=== PATIENT | female | born 1995 | race Caucasian/White ===

== ENCOUNTER → 2019-06-09 | Outpatient (CLI) | payer BC ==
[~2019-06-09] MED LIST: ABAC300; IBUP800 PO; LABE100 PO; ONDA4ODT; Verotin-Gr Cap1 EACH PO
== END | disposition home or self-care (01) ==
LOC: LAB EV 14:45 → LAB SHORT 14:45
DX: R35.0 Frequency of micturition (principal)
CPT/HCPCS: 87086

== ENCOUNTER 2020-05-21 13:39 | Emergency (ER) | payer OTHER, BC ==
[~2020-05-21] VITALS: Ht 177.8 cm; Wt 74.8 kg
[2020-05-21 14:26] LABS: BASOPHILS ABSOLUTE AUTO 0.05 K/mm3 (0.00-0.23); BASOPHILS PERCENT AUTO 1 % (0-2); EOSINOPHILS ABSOLUTE AUTO 0.12 K/mm3 (0.00-0.68); EOSINOPHILS PERCENT AUTO 2 % (0-6); Hemoglobin 13.4 g/dL (11.5-16.0); IMMATURE GRAN ABSOLUTE AUTO 0.02 K/mm3 (0.00-0.10); IMMATURE GRAN PERCENT AUTO 0 % (0-1); LYMPHOCYTES ABSOLUTE AUTO 2.01 K/mm3 (0.84-5.20); LYMPHOCYTES PERCENT AUTO 24 % (21-46); MONOCYTES ABSOLUTE AUTO 0.59 K/mm3 (0.16-1.47); MONOCYTES PERCENT AUTO 7 % (4-13); Mean Corpuscular HGB 30.5 pg (26.0-34.0); Mean Corpuscular HGB Conc 33.5 g/dL (31.5-36.5); Mean Corpuscular Volume 91 fL (80-100); Mean Platelet Volume 9.7 fL (9.1-12.4); NEUTROPHILS ABSOLUTE AUTO 5.48 K/mm3 (1.96-9.15); NEUTROPHILS PERCENT AUTO 66 % (41-73); Platelet Count 274 K/mm3 (150-400); RDW Coefficient Variation 12.1 % (11.7-14.2); RDW Standard Deviation 40.9 fL (35.1-46.3); Red Blood Cell Count 4.39 M/mm3 (3.80-5.20); White Blood Cell Count 8.27 K/mm3 (4.00-11.30)
[2020-05-21 14:48] LABS: Source, Urine Clean Catch
[2020-05-21 14:49] LABS: Alanine Aminotransfer (ALT/SGP 30 U/L (12-78); Albumin, Blood 3.9 g/dL (3.4-5.0); Albumin/Globulin Ratio 1.1 (0.8-1.8); Alk Phos 44 U/L (50-136); Anion Gap 4 mmol/L (6-16); Aspartate Aminotrans (AST/SGOT 17 U/L (12-37); Beta HCG, Quantitative, Serum 170 mIU/mL (0-3); Bilirubin, Total 0.6 mg/dL (0.1-1.0); Blood Urea Nitrogen 9 mg/dL (8-24); Bun/Creatinine Ratio 12.7 (12.0-20.0); CO2, Blood 28 mmol/L (21-32); Calcium, Blood 8.6 mg/dL (8.5-10.1); Chloride, Blood 108 mmol/L (98-108); Creatinine, Blood 0.71 mg/dL (0.40-1.00); Globulin, Blood 3.5 g/dL (2.2-4.0); Glomerular Filtration Rate >60 (60-); Glucose, Blood 93 mg/dL (70-99); Potassium, Blood 3.7 mmol/L (3.5-5.5); Sodium, Blood 140 mmol/L (136-145); Total Protein, Blood 7.4 g/dL (6.4-8.2)
[2020-05-21] MEDS ORDERED: EUTHYROX25 MC1 PO (14:49)
[2020-05-21 15:02] LABS: Bilirubin, Urine Neg (Neg); Blood, Urine 5+ (Neg); Glucose Qualitative, Urine Neg (Neg); Ketones, Urine Neg (Neg); Leukocyte Esterase, Urine Neg (Neg); Nitrite, Urine Neg (Neg); Protein, Urine Neg (Neg); Urobilinogen, Urine NORM (Normal)
[2020-05-21 15:11] LABS: Appearance, Urine Clear (Clear); Color, Urine Yellow (P-Yellow)
[2020-05-21 15:18] LABS: White Blood Cells, Urine 0-2 /hpf (0-5)
[2020-05-21 15:19] LABS: Bacteria Mod /hpf; Squamous Epithelial Cells Few /hpf (Few)
== END 2020-05-21 16:30 | disposition home or self-care (01) ==
LOC: ER 13:39
PROVIDERS: Physician Assistant
DX: O03.9 Complete or unspecified spontaneous abortion without complication (principal); Z79.899 Other long term (current) drug therapy
CPT/HCPCS: 36415; 76801; 76817; 80053; 81001; 81025; 84702; 84703; 85025; 86900; 86901; 87086; 99284-25

== ENCOUNTER 2021-06-18 18:01 | Emergency (ER) | payer OTHER, BC ==
[~2021-06-18] VITALS: Ht 180.3 cm; Wt 74.8 kg
[~2021-06-18 18:01] MED LIST changes: +EUTHYROX25 MC1 PO
[2021-06-18 19:14] LABS: BASOPHILS ABSOLUTE AUTO 0.03 K/mm3 (0.00-0.23); BASOPHILS PERCENT AUTO 0 % (0-2); EOSINOPHILS PERCENT AUTO 0 % (0-6); Hemoglobin 13.4 g/dL (11.5-16.0); IMMATURE GRAN ABSOLUTE AUTO 0.03 K/mm3 (0.00-0.10); IMMATURE GRAN PERCENT AUTO 0 % (0-1); LYMPHOCYTES ABSOLUTE AUTO 2.48 K/mm3 (0.84-5.20); LYMPHOCYTES PERCENT AUTO 21 % (21-46); MONOCYTES PERCENT AUTO 8 % (4-13); Mean Corpuscular HGB 30.9 pg (26.0-34.0); Mean Corpuscular HGB Conc 33.5 g/dL (31.5-36.5); Mean Corpuscular Volume 92 fL (80-100); Mean Platelet Volume 9.9 fL (9.1-12.4); NEUTROPHILS ABSOLUTE AUTO 8.53 K/mm3 (1.96-9.15); NEUTROPHILS PERCENT AUTO 71 % (41-73); Platelet Count 280 K/mm3 (150-400); RDW Standard Deviation 40.3 fL (35.1-46.3); Red Blood Cell Count 4.34 M/mm3 (3.80-5.20); White Blood Cell Count 11.97 K/mm3 (4.00-11.30)
[2021-06-18 19:35] LABS: Alanine Aminotransfer (ALT/SGP 42 U/L (12-78); Albumin, Blood 3.9 g/dL (3.4-5.0); Alk Phos 48 U/L (50-136); Anion Gap 5 mmol/L (6-16); Aspartate Aminotrans (AST/SGOT 26 U/L (12-37); Bilirubin, Total 0.5 mg/dL (0.1-1.0); Blood Urea Nitrogen 12 mg/dL (8-24); Bun/Creatinine Ratio 17.8 (12.0-20.0); CO2, Blood 26 mmol/L (21-32); Calcium, Blood 9.1 mg/dL (8.5-10.1); Chloride, Blood 108 mmol/L (98-108); Creatinine, Blood 0.68 mg/dL (0.40-1.00); Globulin, Blood 3.9 g/dL (2.2-4.0); Glomerular Filtration Rate >60 (60-); Glucose, Blood 102 mg/dL (70-99); Potassium, Blood 3.5 mmol/L (3.5-5.5); Sodium, Blood 139 mmol/L (136-145); Total Protein, Blood 7.8 g/dL (6.4-8.2)
== END 2021-06-18 22:50 | disposition home or self-care (01) ==
LOC: ER 18:01
PROVIDERS: Physician Assistant
DX: N83.201 Unspecified ovarian cyst, right side (principal)
CPT/HCPCS: 36415; 74177; 80053; 85025; 99284-25; Q9967

== ENCOUNTER 2021-08-28 17:24 | Emergency (ER) | payer OTHER, BC ==
[~2021-08-28] VITALS: Ht 177.8 cm; Wt 74.8 kg
[2021-08-28 18:26] LABS: BASOPHILS ABSOLUTE AUTO 0.04 K/mm3 (0.00-0.23); BASOPHILS PERCENT AUTO 0 % (0-2); EOSINOPHILS ABSOLUTE AUTO 0.11 K/mm3 (0.00-0.68); EOSINOPHILS PERCENT AUTO 1 % (0-6); Hematocrit 40.5 % (33.0-51.0); Hemoglobin 13.6 g/dL (11.5-16.0); IMMATURE GRAN ABSOLUTE AUTO 0.03 K/mm3 (0.00-0.10); IMMATURE GRAN PERCENT AUTO 0 % (0-1); LYMPHOCYTES ABSOLUTE AUTO 2.19 K/mm3 (0.84-5.20); LYMPHOCYTES PERCENT AUTO 18 % (21-46); MONOCYTES ABSOLUTE AUTO 0.77 K/mm3 (0.16-1.47); MONOCYTES PERCENT AUTO 6 % (4-13); Mean Corpuscular HGB 30.7 pg (26.0-34.0); Mean Corpuscular HGB Conc 33.6 g/dL (31.5-36.5); Mean Corpuscular Volume 91 fL (80-100); Mean Platelet Volume 9.9 fL (9.1-12.4); NEUTROPHILS ABSOLUTE AUTO 9.14 K/mm3 (1.96-9.15); NEUTROPHILS PERCENT AUTO 75 % (41-73); Platelet Count 305 K/mm3 (150-400); RDW Coefficient Variation 11.9 % (11.7-14.2); RDW Standard Deviation 40.1 fL (35.1-46.3); Red Blood Cell Count 4.43 M/mm3 (3.80-5.20); White Blood Cell Count 12.28 K/mm3 (4.00-11.30)
[2021-08-28 18:37] LABS: Source, Urine Clean Catch
[2021-08-28 18:41] LABS: Bilirubin, Urine Neg (Neg); Blood, Urine 5+ (Neg); Glucose Qualitative, Urine Neg (Neg); Ketones, Urine Neg (Neg); Leukocyte Esterase, Urine Neg (Neg); Nitrite, Urine Neg (Neg); Protein, Urine Neg (Neg); Specific Gravity, Urine 1.015 (1.003-1.022); Urobilinogen, Urine NORM (Normal); pH, Urine 6.5 (5.0-8.0)
[2021-08-28 18:45] LABS: Alanine Aminotransfer (ALT/SGP 39 U/L (12-78); Albumin/Globulin Ratio 1.1 (0.8-1.8); Alk Phos 47 U/L (50-136); Anion Gap 6 mmol/L (6-16); Aspartate Aminotrans (AST/SGOT 27 U/L (12-37); Bilirubin, Total 0.2 mg/dL (0.1-1.0); Blood Urea Nitrogen 11 mg/dL (8-24); Bun/Creatinine Ratio 15.3 (12.0-20.0); CO2, Blood 27 mmol/L (21-32); Calcium, Blood 8.8 mg/dL (8.5-10.1); Chloride, Blood 105 mmol/L (98-108); Creatinine, Blood 0.72 mg/dL (0.40-1.00); Globulin, Blood 3.7 g/dL (2.2-4.0); Glomerular Filtration Rate >60 (60-); Glucose, Blood 99 mg/dL (70-99); Potassium, Blood 3.9 mmol/L (3.5-5.5); Sodium, Blood 138 mmol/L (136-145); Total Protein, Blood 7.7 g/dL (6.4-8.2)
[2021-08-28 18:56] LABS: Appearance, Urine Hazy (Clear); Color, Urine Pale Yellow (P-Yellow)
[2021-08-28 18:57] LABS: Bacteria Few /hpf; Mucus Mod (0-Heavy); Red Blood Cells, Urine 25-50 /hpf (0-2); Squamous Epithelial Cells Few /hpf (Few); White Blood Cells, Urine 0-2 /hpf (0-5)
[2021-08-28] MEDS ORDERED: VENL37.5ER PO (19:25)
== END 2021-08-28 21:28 | disposition home or self-care (01) ==
LOC: ER 17:24
PROVIDERS: Physician Assistant
DX: R10.32 Left lower quadrant pain (principal); R31.9 Hematuria, unspecified; D72.829 Elevated white blood cell count, unspecified; E03.9 Hypothyroidism, unspecified; Z79.899 Other long term (current) drug therapy; X50.0XXA Overexertion from strenuous movement or load, initial encounter
CPT/HCPCS: 36415; 74176; 76830; 76856; 80053; 81001; 81025; 83690; 85025; 87086; 96374; 99284-25; J7030

== ENCOUNTER → 2021-11-29 | Outpatient (CLI) | payer OTHER, BC ==
[~2021-11-29] MED LIST changes: +VENL37.5ER PO
== END | disposition home or self-care (01) ==
LOC: LAB SHORT 11:10 → LAB 11:10
PROVIDERS: Advanced Practice Midwife
DX: Z01.419 Encounter for gynecological examination (general) (routine) without abnormal findings (principal)
CPT/HCPCS: G0123

== ENCOUNTER → 2022-02-09 | Outpatient (CLI) | payer OTHER, BC | END | disposition home or self-care (01) | LOC: LAB 20:45 → LAB SHORT 20:45 | PROVIDERS: Obstetrics & Gynecology | DX: O03.9 Complete or unspecified spontaneous abortion without complication (principal); N96 Recurrent pregnancy loss | CPT/HCPCS: 88305 ==

== ENCOUNTER 2022-02-12 20:20 | Emergency (ER) | payer OTHER, BC ==
[~2022-02-12] VITALS: Ht 177.8 cm; Wt 81.7 kg
[2022-02-12 21:20] LABS: BASOPHILS ABSOLUTE AUTO 0.05 K/mm3 (0.00-0.23); BASOPHILS PERCENT AUTO 1 % (0-2); EOSINOPHILS ABSOLUTE AUTO 0.25 K/mm3 (0.00-0.68); EOSINOPHILS PERCENT AUTO 3 % (0-6); Hematocrit 38.1 % (33.0-51.0); Hemoglobin 12.8 g/dL (11.5-16.0); IMMATURE GRAN ABSOLUTE AUTO 0.02 K/mm3 (0.00-0.10); IMMATURE GRAN PERCENT AUTO 0 % (0-1); LYMPHOCYTES ABSOLUTE AUTO 3.16 K/mm3 (0.84-5.20); LYMPHOCYTES PERCENT AUTO 36 % (21-46); MONOCYTES ABSOLUTE AUTO 0.85 K/mm3 (0.16-1.47); MONOCYTES PERCENT AUTO 10 % (4-13); Mean Corpuscular HGB 31.1 pg (26.0-34.0); Mean Corpuscular HGB Conc 33.6 g/dL (31.5-36.5); Mean Corpuscular Volume 93 fL (80-100); Mean Platelet Volume 9.9 fL (9.1-12.4); NEUTROPHILS ABSOLUTE AUTO 4.48 K/mm3 (1.96-9.15); NEUTROPHILS PERCENT AUTO 51 % (41-73); Platelet Count 280 K/mm3 (150-400); RDW Coefficient Variation 11.8 % (11.7-14.2); RDW Standard Deviation 40.2 fL (35.1-46.3); Red Blood Cell Count 4.11 M/mm3 (3.80-5.20); White Blood Cell Count 8.81 K/mm3 (4.00-11.30)
[2022-02-12 21:40] LABS: Albumin, Blood 3.8 g/dL (3.4-5.0); Albumin/Globulin Ratio 1.1 (0.8-1.8); Bilirubin, Total 0.2 mg/dL (0.1-1.0); Bun/Creatinine Ratio 12.2 (12.0-20.0); Creatinine, Blood 0.82 mg/dL (0.40-1.00); Globulin, Blood 3.4 g/dL (2.2-4.0); Potassium, Blood 3.9 mmol/L (3.5-5.5); Total Protein, Blood 7.2 g/dL (6.4-8.2)
== END 2022-02-12 23:41 | disposition home or self-care (01) ==
LOC: ER 20:20
PROVIDERS: Physician Assistant
DX: R11.2 Nausea with vomiting, unspecified (principal); Z79.899 Other long term (current) drug therapy; Z87.59 Personal history of other complications of pregnancy, childbirth and the puerperium
CPT/HCPCS: 36415; 76801; 76817; 80053; 84702; 85025; 86900; 86901; 99284-25; J2405; J7030

== ENCOUNTER → 2022-05-16 | Outpatient (CLI) | payer OTHER, BC | END | disposition home or self-care (01) | LOC: LAB 17:16 → LAB SHORT 17:16 | DX: R07.9 Chest pain, unspecified (principal) | CPT/HCPCS: 85379 ==

== ENCOUNTER → 2022-10-27 | Outpatient (CLI) | payer OTHER, BC ==
[2022-10-27 14:25] LABS: Source, Urine Clean Catch
[2022-10-27 15:32] LABS: Bilirubin, Urine Neg (Neg); Blood, Urine 2+ (Neg); Color, Urine Yellow (P-Yellow); Glucose Qualitative, Urine Neg (Neg); Ketones, Urine Neg (Neg); Leukocyte Esterase, Urine Neg (Neg); Nitrite, Urine Neg (Neg); Protein, Urine 2+ (Neg); Urobilinogen, Urine NORM (Normal)
[2022-10-27 15:39] LABS: Amorphous Light (0-Heavy); Appearance, Urine Clear (Clear); Bacteria Mod /hpf; Mucus Light (0-Heavy); Red Blood Cells, Urine 0-2 /hpf (0-2); Squamous Epithelial Cells Rare /hpf (Few); White Blood Cells, Urine 0-2 /hpf (0-5)
== END | disposition home or self-care (01) ==
LOC: LAB 14:23 → LAB SHORT 14:23
PROVIDERS: Registered Nurse Community Health
DX: Z34.91 Encounter for supervision of normal pregnancy, unspecified, first trimester (principal)
CPT/HCPCS: 81001; 87086

== ENCOUNTER → 2022-11-01 | Outpatient (CLI) | payer OTHER, BC | END | disposition home or self-care (01) | LOC: LAB 15:10 → LAB SHORT 15:10 | DX: N89.8 Other specified noninflammatory disorders of vagina (principal) | CPT/HCPCS: 87070; 87205 ==

== ENCOUNTER 2022-11-30 02:49 | Day surgery (SDC) | payer OTHER, BC ==
[2022-11-30 14:35] VITALS: BP 127/77
[2022-11-30] MEDS ORDERED: UNISOM SIMPLE2.5 MG (14:49)
[2022-11-30] MEDS ORDERED: Ondansetron Odt8 MG (14:49)
[2022-11-30] MEDS ORDERED: PRENATAL TABLE1 EAC2 PO (14:50)
== END 2022-11-30 15:23 | disposition home or self-care (01) ==
LOC: ATC 02:49
DX: O21.9 Vomiting of pregnancy, unspecified (principal); Z3A.00 Weeks of gestation of pregnancy not specified; E03.9 Hypothyroidism, unspecified; Z79.899 Other long term (current) drug therapy
CPT/HCPCS: 96361; 96374; J2930; J7120

== ENCOUNTER 2022-12-01 03:46 | Day surgery (SDC) | payer OTHER, BC ==
[~2022-12-01 03:46] MED LIST changes: +Ondansetron Odt8 MG; +PRENATAL TABLE1 EAC2 PO; +UNISOM SIMPLE2.5 MG
[2022-12-01 14:10] VITALS: BP 126/78
== END 2022-12-01 15:05 | disposition home or self-care (01) ==
LOC: ATC 03:46
DX: O21.9 Vomiting of pregnancy, unspecified (principal); Z3A.00 Weeks of gestation of pregnancy not specified; E03.9 Hypothyroidism, unspecified; Z79.899 Other long term (current) drug therapy
CPT/HCPCS: 96361; 96374; J2930; J7120

== ENCOUNTER 2022-12-02 00:08 | Day surgery (SDC) | payer OTHER, BC ==
[2022-12-02 10:52] VITALS: BP 102/65
== END 2022-12-02 10:54 | disposition home or self-care (01) ==
LOC: ATC 00:08
DX: O21.9 Vomiting of pregnancy, unspecified (principal); Z3A.00 Weeks of gestation of pregnancy not specified; E03.9 Hypothyroidism, unspecified; Z91.040 Latex allergy status; Z79.899 Other long term (current) drug therapy
CPT/HCPCS: 96374; J2930

== ENCOUNTER 2022-12-04 01:20 | Day surgery (SDC) | payer OTHER, BC ==
[2022-12-04 15:35] VITALS: BP 114/74
== END 2022-12-04 16:40 | disposition home or self-care (01) ==
LOC: ATC 01:20
DX: O21.9 Vomiting of pregnancy, unspecified (principal); Z3A.00 Weeks of gestation of pregnancy not specified
CPT/HCPCS: 96360; J7120

== ENCOUNTER 2022-12-07 00:25 | Day surgery (SDC) | payer OTHER, BC ==
[2022-12-07] MEDS ORDERED: Aspir 8181 MG PO (09:38)
[2022-12-07 09:39] VITALS: BP 127/70
== END 2022-12-07 10:45 | disposition home or self-care (01) ==
LOC: ATC 00:25
DX: O21.9 Vomiting of pregnancy, unspecified (principal); Z3A.00 Weeks of gestation of pregnancy not specified; E03.9 Hypothyroidism, unspecified; Z79.899 Other long term (current) drug therapy
CPT/HCPCS: 96360; J7120

== ENCOUNTER 2022-12-14 01:26 | Day surgery (SDC) | payer OTHER, BC ==
[~2022-12-14 01:26] MED LIST changes: +Aspir 8181 MG PO
--- NOTE | 2022-12-14 11:19 | NUR ---
NO CALL, NO SHOW
== END 2022-12-14 23:06 | disposition home or self-care (01) ==
LOC: ATC 01:26
DX: O21.9 Vomiting of pregnancy, unspecified (principal); Z3A.00 Weeks of gestation of pregnancy not specified
CPT/HCPCS: J7120

== ENCOUNTER 2022-12-22 00:56 | Day surgery (SDC) | payer OTHER, BC ==
[2022-12-22 14:51] VITALS: BP 120/79
[2022-12-22] MEDS ORDERED: PANTOPRAZOLE SO40 M2 PO (14:54)
[2022-12-22] MEDS ORDERED: REGLAN1013 PO (14:54)
== END 2022-12-22 15:45 | disposition home or self-care (01) ==
LOC: ATC 00:56
DX: O21.9 Vomiting of pregnancy, unspecified (principal); Z3A.16 16 weeks gestation of pregnancy
CPT/HCPCS: J7120

== ENCOUNTER 2022-12-27 00:24 | Day surgery (SDC) | payer OTHER, BC ==
[~2022-12-27 00:24] MED LIST changes: +PANTOPRAZOLE SO40 M2 PO; +REGLAN1013 PO
[2022-12-27 09:26] VITALS: BP 107/70
== END 2022-12-27 10:19 | disposition home or self-care (01) ==
LOC: ATC 00:24
DX: O21.9 Vomiting of pregnancy, unspecified (principal); Z3A.00 Weeks of gestation of pregnancy not specified; O99.280 Endocrine, nutritional and metabolic diseases complicating pregnancy, unspecified trimester; E03.9 Hypothyroidism, unspecified
CPT/HCPCS: J7120

== ENCOUNTER 2022-12-28 02:51 | Day surgery (SDC) | payer OTHER, BC ==
[2022-12-28 08:30] VITALS: BP 122/67
== END 2022-12-28 09:42 | disposition home or self-care (01) ==
LOC: ATC 02:51
DX: O21.9 Vomiting of pregnancy, unspecified (principal); O99.280 Endocrine, nutritional and metabolic diseases complicating pregnancy, unspecified trimester; Z3A.00 Weeks of gestation of pregnancy not specified
CPT/HCPCS: 96360; J7120

== ENCOUNTER 2023-01-02 02:25 | Day surgery (SDC) | payer OTHER, BC ==
[2023-01-02 08:42] VITALS: BP 113/72
== END 2023-01-02 09:49 | disposition home or self-care (01) ==
LOC: ATC 02:25
DX: O21.9 Vomiting of pregnancy, unspecified (principal); Z3A.00 Weeks of gestation of pregnancy not specified; E03.9 Hypothyroidism, unspecified; Z79.899 Other long term (current) drug therapy
CPT/HCPCS: 96360; J7120

== ENCOUNTER 2023-01-04 03:23 | Day surgery (SDC) | payer OTHER, BC ==
[2023-01-04 08:40] VITALS: BP 126/65
== END 2023-01-04 09:52 | disposition home or self-care (01) ==
LOC: ATC 03:23
DX: O21.9 Vomiting of pregnancy, unspecified (principal); Z3A.00 Weeks of gestation of pregnancy not specified; E03.9 Hypothyroidism, unspecified; Z79.899 Other long term (current) drug therapy
CPT/HCPCS: 96360; J7120

== ENCOUNTER 2023-01-08 03:30 | Day surgery (SDC) | payer OTHER, BC ==
[2023-01-08 08:43] VITALS: BP 131/72
== END 2023-01-08 09:46 | disposition home or self-care (01) ==
LOC: ATC 03:30
DX: O21.9 Vomiting of pregnancy, unspecified (principal); Z3A.18 18 weeks gestation of pregnancy
CPT/HCPCS: J7120

== ENCOUNTER → 2023-01-11 | Outpatient (CLI) | payer OTHER, BC ==
[2023-01-11 16:35] LABS: Source, Urine Voided
[2023-01-11 18:01] LABS: Appearance, Urine Turbid (Clear); Bilirubin, Urine Neg (Neg); Blood, Urine 1+ (Neg); Color, Urine Yellow (P-Yellow); Glucose Qualitative, Urine Neg (Neg); Ketones, Urine Neg (Neg); Leukocyte Esterase, Urine Neg (Neg); Nitrite, Urine Neg (Neg); Protein, Urine 1+ (Neg); Urobilinogen, Urine NORM (Normal)
[2023-01-11 18:36] LABS: Bacteria Many /hpf; Mucus Light (0-Heavy); Red Blood Cells, Urine 0-2 /hpf (0-2); Squamous Epithelial Cells Few /hpf (Few); White Blood Cells, Urine 0-2 /hpf (0-5)
[2023-01-11 18:37] LABS: Amorphous Heavy (0-Heavy)
[2023-01-13 15:10] LABS: CHLAMYDIA TRACHOMATIS, NAA Negative (Negative)
== END | disposition home or self-care (01) ==
LOC: LAB 16:30 → LAB SHORT 16:30
PROVIDERS: Registered Nurse Community Health
DX: Z34.91 Encounter for supervision of normal pregnancy, unspecified, first trimester (principal); R82.90 Unspecified abnormal findings in urine
CPT/HCPCS: 81001; 87086; 87491; 87591

== ENCOUNTER 2023-01-12 03:05 | Day surgery (SDC) | payer OTHER, BC ==
[2023-01-12 08:32] VITALS: BP 122/69
== END 2023-01-12 09:32 | disposition home or self-care (01) ==
LOC: ATC 03:05
DX: O21.1 Hyperemesis gravidarum with metabolic disturbance (principal); O99.280 Endocrine, nutritional and metabolic diseases complicating pregnancy, unspecified trimester; E03.9 Hypothyroidism, unspecified; Z3A.00 Weeks of gestation of pregnancy not specified
CPT/HCPCS: 96360; J7120

== ENCOUNTER 2023-01-15 03:16 | Day surgery (SDC) | payer OTHER, BC ==
[2023-01-15 08:20] VITALS: BP 120/69
== END 2023-01-15 09:32 | disposition home or self-care (01) ==
LOC: ATC 03:16
DX: O21.1 Hyperemesis gravidarum with metabolic disturbance (principal); Z3A.00 Weeks of gestation of pregnancy not specified
CPT/HCPCS: 96360; J7120

== ENCOUNTER 2023-01-22 02:09 | Day surgery (SDC) | payer OTHER, BC ==
[2023-01-22 09:31] VITALS: BP 131/62
[2023-01-22] MEDS ORDERED: Cyclobenzaprine5 MG PO (10:01)
== END 2023-01-22 10:43 | disposition home or self-care (01) ==
LOC: ATC 02:09
DX: O21.1 Hyperemesis gravidarum with metabolic disturbance (principal); Z3A.00 Weeks of gestation of pregnancy not specified
CPT/HCPCS: 96360; J7120

== ENCOUNTER 2023-02-07 04:45 | Day surgery (SDC) | payer OTHER, BC ==
[~2023-02-07 04:45] MED LIST changes: +Cyclobenzaprine5 MG PO
[2023-02-07 08:32] VITALS: BP 111/66
== END 2023-02-07 09:39 | disposition home or self-care (01) ==
LOC: ATC 04:45
DX: O21.1 Hyperemesis gravidarum with metabolic disturbance (principal); Z3A.22 22 weeks gestation of pregnancy
CPT/HCPCS: 96360; J7120

== ENCOUNTER 2023-02-09 10:12 | Day surgery (SDC) | payer OTHER, BC ==
[2023-02-09 10:57] VITALS: BP 119/66
== END 2023-02-09 12:04 | disposition home or self-care (01) ==
LOC: ATC 10:12
DX: O21.1 Hyperemesis gravidarum with metabolic disturbance (principal); Z3A.22 22 weeks gestation of pregnancy
CPT/HCPCS: 96360; J7120

== ENCOUNTER 2023-02-12 00:58 | Day surgery (SDC) | payer OTHER, BC | END 2023-02-12 22:56 | disposition home or self-care (01) | LOC: ATC 00:58 | DX: O21.9 Vomiting of pregnancy, unspecified (principal); O99.280 Endocrine, nutritional and metabolic diseases complicating pregnancy, unspecified trimester; E03.9 Hypothyroidism, unspecified; Z3A.00 Weeks of gestation of pregnancy not specified ==

== ENCOUNTER 2023-02-14 01:52 | Day surgery (SDC) | payer OTHER, BC ==
[2023-02-14 07:42] VITALS: BP 114/67
== END 2023-02-14 08:47 | disposition home or self-care (01) ==
LOC: ATC 01:52
DX: O21.9 Vomiting of pregnancy, unspecified (principal); Z3A.00 Weeks of gestation of pregnancy not specified
CPT/HCPCS: 96360; J7120

== ENCOUNTER 2023-02-16 03:46 | Day surgery (SDC) | payer OTHER, BC ==
[2023-02-16 09:48] VITALS: BP 121/66
== END 2023-02-16 10:56 | disposition home or self-care (01) ==
LOC: ATC 03:46
DX: O21.9 Vomiting of pregnancy, unspecified (principal); Z3A.00 Weeks of gestation of pregnancy not specified
CPT/HCPCS: 96360; J7120

== ENCOUNTER → 2023-03-15 | Outpatient (CLI) | payer OTHER, BC ==
[2023-03-15 19:12] LABS: Hematocrit 31.5 % (33.0-51.0); Hemoglobin 10.9 g/dL (11.5-16.0)
== END ==
LOC: LAB SHORT 14:43 → LAB 14:43
PROVIDERS: Registered Nurse Community Health
DX: Z34.91 Encounter for supervision of normal pregnancy, unspecified, first trimester (principal); Z3A.00 Weeks of gestation of pregnancy not specified
CPT/HCPCS: 82950; 85014; 85018

== ENCOUNTER 2023-03-30 00:17 | Day surgery (SDC) | payer OTHER, BC ==
[2023-03-30 09:25] VITALS: BP 118/64
== END 2023-03-30 10:41 | disposition home or self-care (01) ==
LOC: ATC 00:17
DX: O21.9 Vomiting of pregnancy, unspecified (principal); Z91.040 Latex allergy status; Z3A.00 Weeks of gestation of pregnancy not specified
CPT/HCPCS: 96361; 96374; J2405; J7120

== ENCOUNTER 2023-04-03 01:01 | Day surgery (SDC) | payer OTHER, BC ==
[2023-04-03 09:05] VITALS: BP 117/61
== END 2023-04-03 10:12 | disposition home or self-care (01) ==
LOC: ATC 01:01
DX: O21.9 Vomiting of pregnancy, unspecified (principal); E03.9 Hypothyroidism, unspecified; G43.909 Migraine, unspecified, not intractable, without status migrainosus
CPT/HCPCS: J2405; J7120

== ENCOUNTER 2023-04-06 00:42 | Day surgery (SDC) | payer OTHER, BC ==
[2023-04-06 10:07] VITALS: BP 119/73
== END 2023-04-06 11:18 | disposition home or self-care (01) ==
LOC: ATC 00:42
DX: O21.1 Hyperemesis gravidarum with metabolic disturbance (principal)
CPT/HCPCS: 96361; 96374; J2405; J7120

== ENCOUNTER 2023-04-10 08:47 | Day surgery (SDC) | payer OTHER, BC ==
[2023-04-10 10:35] VITALS: BP 123/67
== END 2023-04-10 11:39 | disposition home or self-care (01) ==
LOC: ATC 08:47
DX: O21.1 Hyperemesis gravidarum with metabolic disturbance (principal); Z3A.00 Weeks of gestation of pregnancy not specified
CPT/HCPCS: 96361; 96374; J2405; J7120

== ENCOUNTER 2023-04-13 01:50 | Day surgery (SDC) | payer OTHER, BC ==
[2023-04-13 10:30] VITALS: BP 117/66
== END 2023-04-13 11:36 | disposition home or self-care (01) ==
LOC: ATC 01:50
DX: O21.1 Hyperemesis gravidarum with metabolic disturbance (principal); Z3A.00 Weeks of gestation of pregnancy not specified; O99.280 Endocrine, nutritional and metabolic diseases complicating pregnancy, unspecified trimester; E03.9 Hypothyroidism, unspecified; Z79.899 Other long term (current) drug therapy
CPT/HCPCS: 96361; 96374; J2405; J7120

== ENCOUNTER 2023-04-17 02:11 | Day surgery (SDC) | payer OTHER, BC ==
[2023-04-17 08:28] VITALS: BP 128/69
== END 2023-04-17 09:34 | disposition home or self-care (01) ==
LOC: ATC 02:11
DX: O21.1 Hyperemesis gravidarum with metabolic disturbance (principal); Z3A.00 Weeks of gestation of pregnancy not specified
CPT/HCPCS: 96361; 96374; J2405; J7120

== ENCOUNTER 2023-05-04 04:44 | Day surgery (SDC) | payer OTHER, BC ==
[2023-05-04 08:30] VITALS: BP 132/79
== END 2023-05-04 09:44 | disposition home or self-care (01) ==
LOC: ATC 04:44
DX: O21.1 Hyperemesis gravidarum with metabolic disturbance (principal); Z3A.00 Weeks of gestation of pregnancy not specified
CPT/HCPCS: 96361; 96374; J2405; J7120

== ENCOUNTER → 2023-05-16 | Outpatient (CLI) | payer OTHER, BC | LOC: LAB SHORT 16:21 → LAB 16:21 | DX: Z34.93 Encounter for supervision of normal pregnancy, unspecified, third trimester (principal); Z3A.00 Weeks of gestation of pregnancy not specified | CPT/HCPCS: 87081; 87150 ==

== ENCOUNTER 2023-06-08 07:05 | Inpatient (IN) | payer OTHER ==
[~2023-06-08] VITALS: Ht 180.3 cm; Wt 96.3 kg
[2023-06-08] VITALS (18 sets, daily range): BP systolic 100–151; BP diastolic 56–101
[2023-06-08 08:05] LABS: BASOPHILS ABSOLUTE AUTO 0.03 K/mm3 (0.00-0.23); BASOPHILS PERCENT AUTO 0 % (0-2); EOSINOPHILS ABSOLUTE AUTO 0.18 K/mm3 (0.00-0.68); EOSINOPHILS PERCENT AUTO 1 % (0-6); Hematocrit 32.8 % (33.0-51.0); Hemoglobin 10.9 g/dL (11.5-16.0); IMMATURE GRAN ABSOLUTE AUTO 0.11 K/mm3 (0.00-0.10); IMMATURE GRAN PERCENT AUTO 1 % (0-1); LYMPHOCYTES ABSOLUTE AUTO 2.34 K/mm3 (0.84-5.20); LYMPHOCYTES PERCENT AUTO 19 % (21-46); MONOCYTES ABSOLUTE AUTO 0.85 K/mm3 (0.16-1.47); MONOCYTES PERCENT AUTO 7 % (4-13); Mean Corpuscular HGB 28.5 pg (26.0-34.0); Mean Corpuscular HGB Conc 33.2 g/dL (31.5-36.5); Mean Corpuscular Volume 86 fL (80-100); Mean Platelet Volume 10.4 fL (9.1-12.4); NEUTROPHILS ABSOLUTE AUTO 9.09 K/mm3 (1.96-9.15); NEUTROPHILS PERCENT AUTO 72 % (41-73); Platelet Count 243 K/mm3 (150-400); RDW Coefficient Variation 13.6 % (11.7-14.2); RDW Standard Deviation 41.8 fL (35.1-46.3); Red Blood Cell Count 3.82 M/mm3 (3.80-5.20)
[2023-06-08] MEDS ORDERED: ONDA4 PO (14:33)
[2023-06-09] VITALS (16 sets, daily range): BP systolic 114–143; BP diastolic 56–77
--- NOTE | 2023-06-09 15:11 | NUR ---
Assumed care from Chucky Thomas RN.
[2023-06-10 01:37] VITALS: BP 133/78
[2023-06-10 07:15] LABS: Hematocrit 29.6 % (33.0-51.0); Hemoglobin 9.7 g/dL (11.5-16.0); Mean Corpuscular HGB 28.9 pg (26.0-34.0); Mean Corpuscular HGB Conc 32.8 g/dL (31.5-36.5); Mean Corpuscular Volume 88 fL (80-100); Mean Platelet Volume 10.7 fL (9.1-12.4); Platelet Count 234 K/mm3 (150-400); RDW Standard Deviation 44.5 fL (35.1-46.3); Red Blood Cell Count 3.36 M/mm3 (3.80-5.20); White Blood Cell Count 13.09 K/mm3 (4.00-11.30)
[2023-06-10 07:17] VITALS: BP 136/71
[2023-06-10] MEDS ORDERED: IBUP800 PO (08:16)
[2023-06-10 09:50] VITALS: BP 125/82
--- NOTE | 2023-06-10 10:01 | NUR ---
PATIENT DISCHARGE INSTRUCTIONS REVIEWED WITH PATIENT AND SO. ADVISED THE IMPORTANCE OF MONITORING FOR BLEEDING, TEMPERATURE 100.4 OR GREATER, HEADACHE, VISION CHANGES, CHEST PAIN, SOB. REVIWED S/S OF BLOOD CLOTS. REVIEWED DEPRESSION AND ANXIETY. PATIENT AND SO VERBALIZED UNDERSTANDING, DENIED ANY FURTHER QUESTIONS OR CONCERNS AT THIS TIME. PATIENT IV D/C, WNL. PATIENT VITAL SIGNS WNL. PRESCIPTION FOR IBUPROFEN SENT TO [facility] PER CNM. PATIENT DISCHARGED HOME WITH INFANT AND SO AT HER SIDE.
== END 2023-06-10 09:56 | disposition home or self-care (01) | DRG 807 ==
LOC: OBS 07:05 → BC 07:06 → OBS 07:24 → BC 07:24
PROVIDERS: ADMIT Registered Nurse Community Health
PROC: 10E0XZZ Delivery of Products of Conception, External Approach (ICD-10-PCS; principal; 2023-06-09)
PROC: 0HQ9XZZ Repair Perineum Skin, External Approach (ICD-10-PCS; 2023-06-09)
PROC: 3E033VJ Introduction of Other Hormone into Peripheral Vein, Percutaneous Approach (ICD-10-PCS; 2023-06-09)
PROC: 10907ZC Drainage of Amniotic Fluid, Therapeutic from Products of Conception, Via Natural or Artificial Opening (ICD-10-PCS; 2023-06-09)
DX: O48.0 Post-term pregnancy (principal); Z37.0 Single live birth; Z3A.40 40 weeks gestation of pregnancy; O70.0 First degree perineal laceration during delivery; Z87.59 Personal history of other complications of pregnancy, childbirth and the puerperium
CPT/HCPCS: 36415; 51702; 85025; 85027; 86850; 86900; 86901; A9270; J1885; J2210; J2405; J2590; J2765; J7120